=== PATIENT | male | born 1975 | race Caucasian/White ===

== ENCOUNTER 2017-02-12 20:25 | Emergency (ER) | payer BC ==
[2017-02-12 20:53] VITALS: BP 111/73; PULSE 83; RESP 18; TEMP 98.3
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
--- NOTE | 2017-02-12 22:03 | XR ---
EXAMINATION TYPE: XR tibia fibula LT DATE OF EXAM: 02/12/2017 COMPARISON: NONE HISTORY: 41-year-old male twisted left leg and felt a pop in his calf while playing football. TECHNIQUE: 2 views FINDINGS: There is bony hypertrophy and fragmentation at the tibial tuberosity suggesting sequela of prior [place]-Schlatter's disease. No acute fracture, subluxation, or dislocation. IMPRESSION: 1. Sequela of prior [place]-Schlatter's disease. 2. No acute osseous abnormality seen. 3. If there is clinical concern for tennis leg, consider ultrasound to assess for any focal fluid or hematoma in the gastrocnemius or within the fascia just deep to the gastrocnemius.
== END 2017-02-12 22:46 | disposition home or self-care (01) ==
LOC: EC 20:25
DX: S86.812A Strain of other muscle(s) and tendon(s) at lower leg level, left leg, initial encounter (principal); Z87.891 Personal history of nicotine dependence; X50.1XXA Overexertion from prolonged static or awkward postures, initial encounter; Y93.61 Activity, american tackle football
CPT/HCPCS: 99283